=== PATIENT | male | born 1975 ===

== ENCOUNTER 2022-02-24 11:53 | Emergency (ER) | payer BC ==
[2022-02-24] MEDS ORDERED: diphenhydrAMINE 50 MG/ML SDV IM ONE (12:53)
[2022-02-24] MEDS ORDERED: Ketorolac 30 MG/ML SDV IM ONE (12:53)
== END 2022-02-24 13:25 | disposition home or self-care (01) ==
LOC: DL.ED 11:53
DX: U07.1 COVID-19 (principal); G44.89 Other headache syndrome
CPT/HCPCS: 96372; 99283; J1200; J1885